=== PATIENT | female | born 1975 | race Caucasian/White ===

== ENCOUNTER 2016-08-06 13:17 | Emergency (ER) | payer OTHER ==
[~2016-08-06] VITALS: Ht 180.3 cm; Wt 159.9 kg
[~2016-08-06 13:17] MED LIST: FIORICE1 PO; MELOXICAM7.5 MG PO; MOTRIN800 MG PO; NAPROSYN500 MG PO; PENICILLN VK500 MG OR; PRE-NATAL OR; PROMETHAZINE25 MG OR; PROMETHAZINE25 MG RE; ULTRAM50 M1 PO; ULTRAM50 MG OR; ULTRAM50 MG PO
[2016-08-06] MEDS ORDERED: FLEXERIL PO (13:59)
[2016-08-06] MEDS ORDERED: BACTRIM DS1 TAB PO (14:04)
[2016-08-06 14:20] VITALS: BP 131/74
== END 2016-08-06 14:20 | disposition home or self-care (01) | DRG 863 ==
LOC: ED 13:17
PROC: 2W3LX1Z Immobilization of Right Lower Extremity using Splint (ICD-10-PCS; principal; 2016-08-06)
DX: T81.4XXA Infection following a procedure, initial encounter (principal); L03.115 Cellulitis of right lower limb; Y83.8 Other surgical procedures as the cause of abnormal reaction of the patient, or of later complication, without mention of misadventure at the time of the procedure

== ENCOUNTER 2017-11-12 16:46 | Emergency (ER) | payer OTHER ==
[~2017-11-12] VITALS: Ht 180.3 cm; Wt 159.1 kg
[~2017-11-12 16:46] MED LIST changes: +BACTRIM DS1 TAB PO; +FLEXERIL PO
[2017-11-12] MEDS ORDERED: MELOXICAM7.5 MG PO (17:10)
[2017-11-12 17:46] LABS: HEMATOCRIT 40.6 % (37.0-47.0); HEMOGLOBIN 13.5 g/dl (12.0-16.0); IMMATURE GRANULOCYTES 0.2 % (0.0-5.0); MEAN CELL VOLUME 91.6 fL CALC (80.0-100.0); MEAN CORPUSCULAR HGB 30.5 pG CALC (26.0-32.0); MEAN CORPUSCULAR HGB CONC 33.3 g/L CALC (32.0-36.0); NEUT# 5.69 thou/uL (2.00-7.15); RED BLOOD COUNT 4.43 mill/uL (4.20-5.60)
[2017-11-12 18:02] LABS: ALBUMIN 3.7 g/dL (3.2-5.0); ALKALINE PHOSPHATASE 133 u/l (38-126); ANION GAP 14 (6-22 (CALC)); BILIRUBIN, TOTAL 0.6 mg/dL (0.0-1.4); BUN 21 mg/dL (7-17); BUN/CREATININE RATIO 25 (12-20 (CALC)); CARBON DIOXIDE 25 mmol/l (22-30); CHLORIDE 105 mmol/l (95-108); CREATININE 0.8 mg/dL (0.5-1.0); GFR > 60 ML/MIN (>=60 (CALC)); GFR FOR AFR.AMER. > 60 ML/MIN (>=60 (CALC)); LIPASE 108 u/l (23-300); POTASSIUM 4.5 mmol/l (3.5-5.1); SGOT/AST 21 u/l (14-36); SGPT/ALT 40 u/l (9-52); SODIUM 140 mmol/l (137-146); TOTAL PROTEIN 7.4 g/dL (6.3-8.2)
[2017-11-12 18:26] LABS: BARBITURATES NEGATIVE (NEGATIVE); COCAINE NEGATIVE (NEGATIVE); METHADONE NEGATIVE (NEGATIVE); OXCYCODONE NEGATIVE (NEGATIVE); TETRAHYDROCANNABIONOL NEGATIVE (NEGATIVE); TRICYLIC ANTIDEPRESSANTS NEGATIVE (NEGATIVE)
[2017-11-12] MEDS ORDERED: NAPROSYN500 MG PO (19:57)
[2017-11-12 20:19] VITALS: BP 137/79
== END 2017-11-12 20:17 | disposition home or self-care (01) | DRG 313 ==
LOC: ED 16:46
PROVIDERS: Emergency Medicine
DX: R07.89 Other chest pain (principal); F41.9 Anxiety disorder, unspecified; R06.4 Hyperventilation
CPT/HCPCS: J2060

== ENCOUNTER 2018-07-03 09:28 | Emergency (ER) | payer OTHER ==
[~2018-07-03] VITALS: Ht 180.3 cm; Wt 159.0 kg
[2018-07-03 09:34] VITALS: BP 168/89
[2018-07-03] MEDS ORDERED: CEPHALEXIN500 M1 PO (10:12)
== END 2018-07-03 10:55 | disposition home or self-care (01) | DRG 556 ==
LOC: ED 09:28
DX: M79.662 Pain in left lower leg (principal)

== ENCOUNTER 2019-01-26 07:18 | Emergency (ER) | payer OTHER ==
[~2019-01-26] VITALS: Ht 180.3 cm; Wt 168.0 kg
[~2019-01-26 07:18] MED LIST changes: +CEPHALEXIN500 M1 PO; +TIZANIDINE2 MG PO; +TRAMADOL HCL50 MG PO
[2019-01-26 08:01] LABS: HEMATOCRIT 35.9 % (37.0-47.0); HEMOGLOBIN 12.2 g/dl (12.0-16.0); IMMATURE GRANULOCYTES 0.2 % (0.0-5.0); MEAN CELL VOLUME 88.2 fL CALC (80.0-100.0); NEUT# 3.07 thou/uL (2.00-7.15); RED BLOOD COUNT 4.07 mill/uL (4.20-5.60); RED CELL DISTRI WIDTH 12.7 % (11.5-15.5)
[2019-01-26 08:38] LABS: ALBUMIN 3.8 g/dL (3.2-5.0); ALKALINE PHOSPHATASE 78 u/l (38-126); BUN 15 mg/dL (7-17); BUN/CREATININE RATIO 23 (12-20 (CALC)); CARBON DIOXIDE 25 mmol/l (22-30); CHLORIDE 105 mmol/l (95-108); CREATININE 0.6 mg/dL (0.5-1.0); GFR > 60 ML/MIN (>=60 (CALC)); GFR FOR AFR.AMER. > 60 ML/MIN (>=60 (CALC)); LIPASE 79 u/l (23-300); SODIUM 137 mmol/l (137-146); TOTAL PROTEIN 7.2 g/dL (6.3-8.2)
[2019-01-26 08:44] LABS: ANION GAP 12 (6-22 (CALC)); BILIRUBIN, TOTAL 1.2 mg/dL (0.0-1.4); POTASSIUM 5.2 mmol/l (3.5-5.1); SGOT/AST 42 u/l (14-36)
[2019-01-26 09:11] LABS: URINE BILIRUBIN - DIPSTICK NEGATIVE (NEGATIVE); URINE BLOOD DIPSTICK TRACE-INTACT (NEGATIVE); URINE COLOR YELLOW; URINE GLUCOSE - DIPSTICK NEGATIVE (NEGATIVE); URINE KETONE NEGATIVE (NEGATIVE); URINE LEUK ESTERASE NEGATIVE (NEGATIVE); URINE NITRITE - DIPSTICK NEGATIVE (Negative); URINE PH 6.5 (4.5-8.0); URINE PROTEIN - DIPSTICK NEGATIVE (NEG-TRACE); URINE UROBILINOGEN - DIPSTICK 0.2 E.U./dL (0.2)
[2019-01-26] MEDS ORDERED: ONDANSETRON4 MG PO (09:25)
[2019-01-26 09:45] VITALS: BP 157/72
== END 2019-01-26 09:59 | disposition home or self-care (01) | DRG 392 ==
LOC: ED 07:18
PROVIDERS: Family Medicine
DX: R10.11 Right upper quadrant pain (principal)

== ENCOUNTER 2019-06-18 | Emergency (ER) | payer OTHER ==
[~2019-06-18] MED LIST changes: +ONDANSETRON4 MG PO
[2019-06-18 07:47] LABS: HEMATOCRIT 40.2 % (37.0-47.0); HEMOGLOBIN 13.6 g/dl (12.0-16.0); MEAN CELL VOLUME 88.9 fL CALC (80.0-100.0); MEAN CORPUSCULAR HGB 30.1 pG CALC (26.0-32.0); MEAN CORPUSCULAR HGB CONC 33.8 g/L CALC (32.0-36.0); NEUT# 2.43 thou/uL (2.00-7.15); RED BLOOD COUNT 4.52 mill/uL (4.20-5.60); RED CELL DISTRI WIDTH 12.3 % (11.5-15.5)
[2019-06-18 08:01] LABS: ALBUMIN 4.1 g/dL (3.2-5.0); ALKALINE PHOSPHATASE 83 u/l (38-126); ANION GAP 12 (6-22 (CALC)); BUN 22 mg/dL (7-17); BUN/CREATININE RATIO 30 (12-20 (CALC)); CARBON DIOXIDE 23 mmol/l (22-30); CHLORIDE 107 mmol/l (95-108); CREATININE 0.7 mg/dL (0.5-1.0); GFR > 60 ML/MIN (>=60 (CALC)); GFR FOR AFR.AMER. > 60 ML/MIN (>=60 (CALC)); POTASSIUM 4.2 mmol/l (3.5-5.1); SGOT/AST 26 u/l (14-36); SODIUM 138 mmol/l (137-146); TOTAL PROTEIN 7.4 g/dL (6.3-8.2)
[2019-06-18 08:05] LABS: BILIRUBIN, TOTAL 0.7 mg/dL (0.0-1.4)
[2019-06-25] MEDS ORDERED: ALEVE220 M1 PO (06:34)
[2019-09-02] MEDS ORDERED: TRAMADOL HCL50 MG PO (08:54)
[2019-09-02] MEDS ORDERED: TIZANIDINE2 MG PO (08:56)
[2019-09-02] MEDS ORDERED: MELOXICAM15 MG PO (08:59)
== END 2019-06-18 09:46 | disposition home or self-care (01) | DRG 313 ==
DX: R07.89 Other chest pain (principal); Z68.43 Body mass index [BMI] 50.0-59.9, adult; M54.6 Pain in thoracic spine; M89.49 Other hypertrophic osteoarthropathy, multiple sites; R03.0 Elevated blood-pressure reading, without diagnosis of hypertension

== ENCOUNTER → 2019-06-25 | Day surgery (SDC) | payer OTHER ==
[~2019-06-25] MED LIST changes: +ALEVE220 M1 PO; +MELOXICAM15 MG PO
[2019-06-25 06:48] LABS: HCG SERUM/URINE (NEG/POS) NEGATIVE (NEGATIVE)
== END | disposition home or self-care (01) | DRG 552 ==
PROVIDERS: Anesthesiology Pain Medicine
DX: M54.5 Low back pain (principal); M12.9 Arthropathy, unspecified

== ENCOUNTER 2019-09-10 06:02 | Day surgery (SDC) | payer OTHER ==
[2019-09-10 08:14] VITALS: BP 140/59
== END 2019-09-10 08:55 | disposition home or self-care (01) | DRG 552 ==
LOC: ORM 06:02
PROVIDERS: ATTEND Anesthesiology Pain Medicine
DX: M54.5 Low back pain (principal); M12.9 Arthropathy, unspecified; Z01.84 Encounter for antibody response examination

== ENCOUNTER 2020-10-26 15:51 | Emergency (ER) | payer OTHER ==
[~2020-10-26] VITALS: Ht 180.3 cm; Wt 176.3 kg
[2020-10-26 16:32] LABS: HEMATOCRIT 42.6 % (37.0-47.0); HEMOGLOBIN 14.1 g/dl (12.0-16.0); IMMATURE GRANULOCYTES 0.8 % (0.0-5.0); MEAN CELL VOLUME 90.1 fL CALC (80.0-100.0); MEAN CORPUSCULAR HGB 29.8 pG CALC (26.0-32.0); MEAN CORPUSCULAR HGB CONC 33.1 g/dL CAL (32.0-36.0); NEUT# 3.74 thou/uL (2.00-7.15); RED BLOOD COUNT 4.73 mill/uL (4.20-5.60); RED CELL DISTRI WIDTH 12.9 % (11.5-15.5)
[2020-10-26 16:49] LABS: ALKALINE PHOSPHATASE 81 u/l (38-126); ANION GAP 15 (6-22 (CALC)); BUN 14 mg/dL (7-17); BUN/CREATININE RATIO 18 (12-20 (CALC)); CARBON DIOXIDE 24 mmol/l (22-30); CHLORIDE 101 mmol/l (95-108); CREATININE 0.8 mg/dL (0.5-1.0); GFR > 60 ML/MIN (>=60 (CALC)); GFR FOR AFR.AMER. > 60 ML/MIN (>=60 (CALC)); LIPASE 100 u/l (23-300); POTASSIUM 4.2 mmol/l (3.5-5.1); SODIUM 135 mmol/l (137-146); TOTAL PROTEIN 7.8 g/dL (6.3-8.2)
[2020-10-26 16:55] LABS: BILIRUBIN, TOTAL 0.4 mg/dL (0.0-1.4); SGOT/AST 52 u/l (14-36)
[2020-10-26] MEDS ORDERED: ZPAK PO (17:58)
[2020-10-26] MEDS ORDERED: DECADRON4 MG PO (17:58)
[2020-10-26 18:22] VITALS: BP 179/81
[2020-12-09] MEDS ORDERED: TRAMADOL HCL50 MG PO (08:44)
== END 2020-10-26 18:23 | disposition home or self-care (01) | DRG 177 ==
LOC: ED 15:51
PROVIDERS: Family Medicine
DX: U07.1 COVID-19 (principal); J12.82 Pneumonia due to coronavirus disease 2019; M79.662 Pain in left lower leg; E66.9 Obesity, unspecified
CPT/HCPCS: Q9967

== ENCOUNTER 2020-11-05 10:40 | Emergency (ER) | payer OTHER ==
[~2020-11-05] VITALS: Ht 180.3 cm; Wt 90.0 kg
[~2020-11-05 10:40] MED LIST changes: +DECADRON4 MG PO; +ZPAK PO
[2020-11-05] MEDS ORDERED: HYDROCHLOROTH12.5 M1 PO (12:43)
[2020-11-05] MEDS ORDERED: ZOFRAN4 MG/TAB PO (13:53)
[2020-11-05] MEDS ORDERED: AZITHROMYCIN500 MG PO (13:53)
[2020-11-05 14:00] VITALS: BP 139/66
[2020-12-09] MEDS ORDERED: TRAMADOL HCL50 MG PO (08:44)
== END 2020-11-05 14:10 | disposition home or self-care (01) | DRG 177 ==
LOC: ED 10:40
DX: U07.1 COVID-19 (principal); J12.82 Pneumonia due to coronavirus disease 2019; M54.5 Low back pain; G89.29 Other chronic pain

== ENCOUNTER 2020-12-29 06:33 | Day surgery (SDC) | payer OTHER ==
[~2020-12-29 06:33] MED LIST changes: +AZITHROMYCIN500 MG PO; +HYDROCHLOROTH12.5 M1 PO; +ZOFRAN4 MG/TAB PO
[2020-12-29 08:48] VITALS: BP 120/77
== END 2020-12-29 09:08 | disposition home or self-care (01) | DRG 552 ==
LOC: ORM 06:33
PROVIDERS: ATTEND Anesthesiology Pain Medicine
DX: M54.5 Low back pain (principal); M12.9 Arthropathy, unspecified; M46.1 Sacroiliitis, not elsewhere classified

== ENCOUNTER 2022-08-16 09:18 | Emergency (ER) | payer OTHER ==
[~2022-08-16] VITALS: Ht 180.3 cm; Wt 147.0 kg
[2022-08-16] VITALS (7 sets, daily range): BP systolic 125–151; BP diastolic 81–91
== END 2022-08-16 11:04 | disposition home or self-care (01) | DRG 556 ==
LOC: ED 09:18
DX: M25.532 Pain in left wrist (principal)

== ENCOUNTER 2023-06-04 08:39 | Emergency (ER) | payer OTHER ==
[2023-06-04] VITALS (10 sets, daily range): BP systolic 120–151; BP diastolic 72–92
[~2023-06-04] VITALS: Ht 180.3 cm; Wt 145.0 kg
== END 2023-06-04 11:33 | disposition home or self-care (01) | DRG 605 ==
LOC: ED 08:39
DX: S90.31XA Contusion of right foot, initial encounter (principal); W50.0XXA Accidental hit or strike by another person, initial encounter; Y93.89 Activity, other specified; Y92.009 Unspecified place in unspecified non-institutional (private) residence as the place of occurrence of the external cause